=== PATIENT | female | born 1980 | race Two or more races ===

== ENCOUNTER 2016-12-19 19:06 | Emergency (ER) | payer SELFPAY ==
[2016-12-19] MEDS ORDERED: METOCLOPRAMIDE HCL 5 MG/ML 2ML VIAL ONE (20:22)
[2016-12-19] MEDS ORDERED: DIPHENHYDRAMINE HCL 50 MG/1 ML VIAL ONE (20:22)
[2016-12-19] MEDS ORDERED: KETOROLAC TROMETHAMINE 30 MG/ML 1 ML VIAL ONE (20:22)
[2016-12-19] MEDS ORDERED: LORAZEPAM 2 MG/ML 1ML SDV ONE (20:22)
[2016-12-19] MEDS ORDERED: SODIUM CHLORIDE 0.9% 1,000 ML ONE (20:22)
== END 2016-12-19 21:55 | disposition home or self-care (01) ==
LOC: ED 19:06
DX: H81.10 Benign paroxysmal vertigo, unspecified ear (principal)

== ENCOUNTER 2017-01-02 13:49 | Emergency (ER) | payer SELFPAY ==
[2017-01-02] MEDS ORDERED: LORAZEPAM 1 MG TABLET ONE (14:18)
== END 2017-01-02 15:07 | disposition home or self-care (01) ==
LOC: ED 13:49
DX: R42 Dizziness and giddiness (principal)
CPT/HCPCS: 97161; 99283 ×2; A9270